=== PATIENT | female | born 2000 | race Caucasian/White ===

== ENCOUNTER 2019-01-29 20:14 | Emergency (ER) | payer OTHER ==
[2019-01-30] MEDS: CEFTRIAXONE 1 GM INJ IM (04:31)
[2019-01-30] MEDS: DEXAMETHASONE 10 MG/ML 1 ML INJ PO (04:31)
[2019-01-30] MEDS: ONDANSETRON (ODT) 4 MG TAB ODT (04:31)
[2019-01-30] MEDS: ACETAMINOPHEN 500 MG TAB PO (04:31)
[2019-01-30] MEDS: IBUPROFEN 600 MG TAB PO (04:34)
[2019-01-30] MEDS: LIDOCAINE 1% (MDV) 20 ML INJ SC (04:35)
== END 2019-01-30 04:48 | disposition home or self-care (01) ==
LOC: FTE 20:14
DX: J03.90 Acute tonsillitis, unspecified (principal); F17.210 Nicotine dependence, cigarettes, uncomplicated
CPT/HCPCS: 96372; 99284-25; J0696